=== PATIENT | female | born 1980 | race Caucasian/White ===

== ENCOUNTER 2022-07-14 09:09 | Emergency (ER) | payer OTHER, SELFPAY ==
--- NOTE | ~2022-07-14 | XR_ITS ---
XR wrist RT min 3V 07/14/2022 09:43 INDICATION: Right wrist pain after fall PROCEDURE: 4 views right wrist COMPARISON: No prior studies for comparison. FINDINGS: Fracture, dislocation or subluxation is not identified. The soft tissues appear within norm al limits. No foreign bodies are identified. IMPRESSION: 1: NO ACUTE BONE OR JOINT ABNORMALITY IDENTIFIED. Reviewed, dictated and finalized at location A. [employer] [place]
--- NOTE | 2022-07-14 09:11 | ED.UPPEXIN ---
HPI - Extremity Injury (Upper) General Chief Complaint: Extremity Injury, Upper Stated Complaint: Right wrist injury Time Seen by Provider: 07/14/22 09:11 Source: patient and RN notes reviewed History of Present Illness HPI narrative: patient is a 42-year-old female who presents to urgent care with complaints of right wrist pain and injury. Patient states that she tripped and fell outward yesterday catching herself with both hands. Patient has been taking Advil and her prescription [place] for pain. No other acute complaints. No acute distress noted. Patient aware of the plan of care. Some parts of this dictation were generated by voice recognition software and may contain typographical and/or grammatical inaccuracies. Related Data Home Medications Medication Instructions Recorded Confirmed hydrocodone 5 mg-acetaminophen 325 1 tablet PO DIRECTED 07/14/22 07/14/22 mg tablet Allergies Allergy/AdvReac Type Severity Reaction Status Date / Time No Known Allergies Allergy Verified 07/14/22 09:31 Review of Systems Review of Systems: CONSTITUTIONAL: Denies fever, chills, or sweats. EYES: Denies visual changes, redness, or discharge. ENT: Denies rhinorrhea, congestion, sore throat, or otalgia. CARDIOVASCULAR: Denies chest pain, palpitations, or edema. RESPIRATORY: Denies cough or dyspnea. GASTROINTESTINAL: Denies abdominal pain, nausea, vomiting, or diarrhea. GENITOURINARY: Denies dysuria or hematuria. SKIN: Denies rash or itching. MUSCULOSKELETAL: Reports right wrist pain radiating to the elbow NEUROLOGIC: Denies headache, numbness, or weakness. All other systems reviewed are negative, except as documented in HPI. PMFSH Comments At the time of my signature, I reviewed and agree with the nursing past medical, surgical, social, and family history. There is no relevant family history pertinent to the patient complaint. Exam Narrative: GENERAL: This is a well-nourished, well-developed patient, in no apparent distress. HEAD: normocephalic, atraumatic. EYES: PERRL. Sclera clear/white. Vision is grossly intact. EARS: External ears normal NOSE: External nose normal with no obvious nasal discharge, nares without redness, no rhinorrhea. THROAT: Mucous membranes moist NECK: Neck supple SKIN: warm, intact with no suspicious lesions or rash, good texture and turgor. NEURO: awake, alert, and oriented to person, place and time. There were no obvious focal neurologic abnormalities. EXTREMITIES: no obvious ecchymosis, edema or deformity noted to the right upper extremity/ wrist. Pain exacerbated with rotation to the right wrist. Positive strong right radial pulse with capillary refill less than 2 seconds. Course Course Level of Care: Express Care Visit Vital Signs Vital signs: Vital Signs Temperature 97.7 F 07/14/22 09:25 Pulse Rate 80 07/14/22 09:25 Respiratory Rate 20 07/14/22 09:25 Blood Pressure 151/81 H 07/14/22 09:25 Pulse Oximetry 100 07/14/22 09:25 Oxygen Delivery Room Air 07/14/22 09:25 Temperature 97.7 F 07/14/22 09:25 Pulse Rate 80 07/14/22 09:25 Respiratory Rate 20 07/14/22 09:25 Blood Pressure 151/81 H 07/14/22 09:25 Pulse Oximetry 100 07/14/22 09:25 Oxygen Delivery Room Air 07/14/22 09:25 reviewed- Patient is informed that they may have pre-hypertension or hypertension based on a blood pressure reading in the department. I recommend the patient call the primary care provider listed on their discharge instructions or a physician of their choice this week to arrange follow-up for further evaluation of possible pre-hypertension or hypertension. MDM - Extremity Injury (Upper) MDM Narrative Medical decision making narrative: reviewed x-ray results with the patient. She is aware that X-ray was negative for fracture or deformity. Advised patient to use a [place] wrap or wrist splint to help with discomfort and pain. Use Tylenol/ ibuprofen as needed. Follow-u
[2022-07-14 09:25] VITALS: BP 151/81; PULSE 80; RESP 20; TEMP 36.5; O2SAT 100
== END 2022-07-14 09:58 | disposition home or self-care (01) ==
PROVIDERS: Emergency Provider Nurse Practitioner Family
DX: S63.501A Unspecified sprain of right wrist, initial encounter (principal); S66.911A Strain of unspecified muscle, fascia and tendon at wrist and hand level, right hand, initial encounter; W01.0XXA Fall on same level from slipping, tripping and stumbling without subsequent striking against object, initial encounter
CPT/HCPCS: 73110; 99213; G0463